=== PATIENT | male | born 1940 | race African-American/Black ===

== ENCOUNTER 2017-10-31 09:58 | Inpatient (IN) | payer OTHER ==
[~2017-10-31] VITALS: Ht 175.3 cm; Wt 64.5 kg
--- NOTE | ~2017-10-31 | 2DMMODE ---
[facility] [address] [place] [address] 2 D/M-MODE ECHOCARDIOGRAM Name: CHASE DELGADO Room #: 243-P ADM IN M.R.#: [id number] Admission: 10/31/17 Attend Phys: Tim Guadalupe MD Discharge: Date of : 40 Date of Service: 11/05/17 [facility] Report #: [id number] THIS REPORT FOR: //name// APPROVED REPORT Study performed: 11/05/2017 07:54:01 EXAM: Comprehensive 2D, Doppler, and color-flow Echocardiogram Patient Location: ICU Room #: 243 Status: routine BSA: 1.76 HR: 77 bpm BP: 134/70 mmHg Other Information Study Quality: Technically Difficult Technically limited study due to inability to position patient. Indications Congestive Heart Failure Hypertension/HDD 2D Dimensions RVDd: 28.97 mm LVEF(%): 57.26 (>50%) IVSd: 13.05 (7-11mm) LVOT Diam: 20.92 (18-24mm) LVDd: 31.21 mm PWd: 12.65 (7-11mm) Ascending Ao: 33.58 (22-36mm) LVDs: 22.14 (25-40mm) Aortic Root: 36.17 mm IVC: 6.00 mm Pedro's LVEF: 57.26 % Volumes Left Atrial Volume (Systole) Single Plane 4CH: 24.26 mL Single Plane 2CH: 20.00 mL LA ESV Index: 17.00 mL/m2 Aortic Valve AoV Peak Rad.: 1.07 m/s AO Peak Gr.: 4.62 mmHg LVOT Max P.99 mmHg LVOT Max V: 0.71 m/s IVAN Vmax: 2.25 cm2 Mitral Valve [facility] [address] [address] 2 D/M-MODE ECHOCARDIOGRAM Name: CHASE DELGADO Room #: [address] [place] [address] IN ..#: [id number] Admission: 10/31/17 Attend Phys: Tim Guadalupe MD Discharge: Date of : 40 Date of Service: 11/05/17 1200 Report #: [id number] E/A Ratio: 0.8 MV Decel. Time: 242.63 ms MV E Max Rad.: 0.74 m/s MV A Rad.: 0.90 m/s MV PHT: 70.36 ms IVRT: 96.89 ms Pulmonary Valve PV Peak Rad.: 1.21 m/s PV Peak Gr.: 5.88 mmHg Tricuspid Valve TR Peak Rad.: 3.16 m/s RAP Estimate: 5.00 mmHg TR Peak Gr.: 39.82 mmHg PA Pressure: 45.00 mmHg Left Ventricle The left ventricle is normal size. There is normal LV segmental wall motion. Mild concentric left ventricular hypertrophy. The left ventricular systolic function is normal. The left ventricular ejection fraction is within the normal range. LVEF is 55-60%. Mild diastolic dysfunction is present (impaired relaxation pattern). Right Ventricle The right ventricle is normal size. The right ventricular systolic function is normal. Atria The left atrium size is normal. The right atrium size is normal. Aortic Valve Mild aortic valve calcification No aortic regurgitation is present. There is no aortic valvular stenosis. Mitral Valve Mild mitral annular calcification. Mild mitral regurgitation. No evidence of mitral valve stenosis. Tricuspid Valve The tricuspid valve is normal in structure. Trace to mild tricuspid regurgitation. PAP is estimated at 45 mmHg. Pulmonic Valve Pulmonic valve is not well visualized. Mild pulmonic regurgitation. [facility] [address] [place] [address] 2 D/M-MODE ECHOCARDIOGRAM Name: CHASE DELGADO Room #: [facility] IN ..#: [id number] Admission: 10/31/17 Attend Phys: Tim Guadalupe MD Discharge: Date of : 40 Date of Service: 11/05/17 1200 Report #: [id number] Great Vessels The aortic root is normal in size. IVC is normal in size and collapses >50% with inspiration. Pericardium There is no pericardial effusion. <Conclusion> The left ventricular systolic function is normal. There is normal LV segmental wall motion. Mild concentric left ventricular hypertrophy. LVEF 55-60%. Mild diastolic dysfunction Mild aortic valve calcification No aortic regurgitation or stenosis Mild mitral annular calcification. Mild mitral regurgitation. Trace to mild tricuspid regurgitation. Pulmonary artery pressure estimated at 45 mmHg. There is no pericardial effusion. <ELECTRONICALLY SIGNED> By: Sav Rowan MD, FACC 11/05/171199 1200 99 Sav Rowan MD, FACC /INF
--- NOTE | ~2017-10-31 | EKG ---
[address] [address] ELECTROCARDIOGRAM REPORT Name: DANNYCHASE Room #: 453-P ADM IN M.R.#: [id number] Admission: 10/31/17 Attend Phys: Tim Guadalupe MD Discharge: Date of : 40 Report #: [id number] THIS REPORT FOR: //name// [facility] ED Test Date: 2017-10-31 Test Time: 10:48:22 Pat Name: CHASE DELGADO Department: Room: Gender: M Veneer Joiner: GRISEL : 1940 Requested By: Dennys Zhang Order Number: [id number] MD: Fox Mcnamara Measurements Intervals [place] Rate: 52 P: 77 RI: 179 QRS: 80 QRSD: 100 T: 45 QT: 446 QTc: 415 Interpretive Statements Sinus rhythm Probable left atrial enlargement Anteroseptal infarct, age indeterminate No previous ECG available for comparison Electronically Signed On 10-31-2017 13:57:29 CDT by Fox Mcnamara [email or web address] <ELECTRONICALLY SIGNED> By: Fox Mcnamara MD 10/31/17 1357 47 47 Fox Mcnamara MD /CARLOS
--- NOTE | ~2017-10-31 | EKG ---
[address] [address] ELECTROCARDIOGRAM REPORT Name: DELGADOCHASE SAINI Room #: 243-P ADM IN M.R.#: [id number] Admission: 10/31/17 Attend Phys: Tim Guadalupe MD Discharge: Date of : 40 Report #: [id number] THIS REPORT FOR: //name// [facility] Test Date: 2017-11-03 Test Time: 18:25:53 Pat Name: CHASE DELGADO Department: Room: 243 P Gender: M Manager Project: Geno MCGOVERN : 1940 Requested By: Suresh Lebron Order Number: [id number] MD: Sav Rowan Measurements Intervals [place] Rate: 109 P: 61 NM: 175 QRS: 80 QRSD: 92 T: -34 QT: 335 QTc: 452 Interpretive Statements Sinus tachycardia Ventricular premature complex Probable left atrial enlargement Borderline T abnormalities Compared to ECG 10/31/2017 10:48:22 Ventricular premature complex(es) now present Electronically Signed On 11-04-2017 8:00:55 CDT by Sav Rowan [email or web address] <ELECTRONICALLY SIGNED> By: Sav Rowan MD, [facility] 11/04/17 0800 1825 1825 Sav Rowan MD, [facility] /EPI
[2017-10-31 10:02] VITALS: BP 153/86
[2017-10-31 11:15] LABS: HEMATOCRIT 43.1 % (42.0-52.0); HEMOGLOBIN 14.9 gm/dL (14.0-18.0); MCH 31.4 pg (26.0-34.0); MCHC 34.5 g/dL (28.0-37.0); MCV 90.9 fL (80.0-100.0); PLATELET COUNT 200 thou/uL (150-400); RBC 4.74 mil/uL (4.50-6.00); RDW 17.6 % (10.5-14.5); WBC 6.7 thou/uL (4.0-11.0)
[2017-10-31 11:19] LABS: CALCIUM 9.2 mg/dL (8.5-10.1); CREATININE 1.5 mg/dL (0.7-1.3); POTASSIUM 4.6 mmol/L (3.5-5.1)
[2017-10-31 11:24] LABS: DIRECT BILIRUBIN 0.2 mg/dL (<0.1-0.3); TOTAL BILIRUBIN 0.9 mg/dL (<0.1-1.0); TOTAL PROTEIN 7.9 g/dL (6.4-8.2)
[2017-10-31 12:02] LABS: ABSOLUTE NEUTROPHILS 3.4 thou/uL (1.4-8.2); NUCLEATED RBCS 1 /100WBC; PLATELET ESTIMATE NORMAL
[2017-10-31 12:03] LABS: ANISOCYTOSIS SLIGHT; POIKILOCYTOSIS 1+
[2017-10-31 12:11] LABS: URINE BILIRUBIN NEGATIVE (Negative); URINE BLOOD TRACE (Negative); URINE CLARITY CLEAR; URINE COLOR YELLOW; URINE GLUCOSE-RANDOM* NEGATIVE (Negative); URINE KETONES NEGATIVE (Negative); URINE LEUKOCYTES NEGATIVE (Negative); URINE NITRITE NEGATIVE (Negative); URINE PROTEIN (DIPSTICK) 2+ (Negative); URINE UROBILINOGEN 0.2 E.U./dl (0.2-1.0)
[2017-10-31] MEDS ORDERED: LOPRESSOR50 PO (12:18)
[2017-10-31] MEDS ORDERED: ALLOPURINOL 10100 M1 PO (12:19)
[2017-10-31] MEDS ORDERED: LIPITOR 20 MG T20 M1 PO (12:19)
[2017-10-31] MEDS ORDERED: NORVASC10 MG PO (12:19)
[2017-10-31 12:28] VITALS: BP 119/75
[2017-10-31 12:55] LABS: CASTS None Seen /LPF (None Seen); CRYSTALS None Seen /LPF (None Seen); SQUAMOUS 0-3 Few /LPF (0-3); URINE WBC 0-5 Rare /HPF (0-5)
[2017-10-31 12:56] LABS: BACTERIA 1-9 Few /HPF (None Seen); URINE RBC 0-2 Rare /HPF (0-2)
[2017-10-31 13:03] VITALS: BP 119/75
[2017-10-31 13:52] VITALS: BP 135/66
[2017-10-31 16:00] VITALS: BP 143/63
[2017-10-31 19:42] VITALS: BP 138/70
[2017-11-01] VITALS (13 sets, daily range): BP systolic 134–169; BP diastolic 64–103
[2017-11-01 06:16] LABS: ABSOLUTE NEUTROPHILS 3.2 thou/uL (1.4-8.2); EOSINOPHILS 1.7 % (0.0-3.0); HEMATOCRIT 42.4 % (42.0-52.0); HEMOGLOBIN 14.3 gm/dL (14.0-18.0); LYMPHOCYTES 39.5 % (24.0-44.0); MCH 30.8 pg (26.0-34.0); MCHC 33.9 g/dL (28.0-37.0); MONOCYTES 11.8 % (1.0-8.0); PLATELET COUNT 190 thou/uL (150-400); RBC 4.65 mil/uL (4.50-6.00); RDW 17.9 % (10.5-14.5); WBC 6.9 thou/uL (4.0-11.0)
[2017-11-01 06:34] LABS: CALCIUM 9.1 mg/dL (8.5-10.1); CREATININE 1.2 mg/dL (0.7-1.3); MAGNESIUM 1.8 mg/dL (1.8-2.4)
[2017-11-01 08:33] LABS: PLATELET ESTIMATE NORMAL
[2017-11-01] MEDS ORDERED: HYDROCODONE-AP1 EAC6 PO (11:17)
[2017-11-01] MEDS ORDERED: NEURONTIN 300300 M1 PO (11:17)
[2017-11-01] MEDS ORDERED: ZOFRAN4 MG PO (11:17)
[2017-11-02 04:20] VITALS: BP 165/76
[2017-11-02 05:24] LABS: HEMOGLOBIN 13.1 gm/dL (14.0-18.0); MCH 30.5 pg (26.0-34.0); RDW 17.7 % (10.5-14.5)
[2017-11-02 05:26] LABS: HEMATOCRIT 39.8 % (42.0-52.0); MCHC 32.9 g/dL (28.0-37.0); MCV 92.5 fL (80.0-100.0); PLATELET COUNT 194 thou/uL (150-400); RBC 4.31 mil/uL (4.50-6.00); WBC 16.3 thou/uL (4.0-11.0)
[2017-11-02 05:31] LABS: CALCIUM 8.6 mg/dL (8.5-10.1); CREATININE 1.7 mg/dL (0.7-1.3); POTASSIUM 5.2 mmol/L (3.5-5.1)
[2017-11-02 08:17] LABS: ABSOLUTE NEUTROPHILS 13.4 thou/uL (1.4-8.2); ANISOCYTOSIS 1+
[2017-11-02 08:22] VITALS: BP 156/67
[2017-11-02 12:51] LABS: BE(vivo) -6.4 mmol/L (-2 to +3); HCO3 18.4 mmol/L (22.0-26.0); PCO2 34.6 mmHg (35.0-45.0); PO2 48.9 mmHg (80.0-100.0); pH 7.344 (7.360-7.450); sO2 82.8 % (92.0-98.0)
[2017-11-02 16:19] VITALS: BP 154/73
[2017-11-02 19:59] LABS: ABSOLUTE NEUTROPHILS 12.2 thou/uL (1.4-8.2); BASOPHILS 0.2 % (0.0-2.0); HEMATOCRIT 39.3 % (42.0-52.0); HEMOGLOBIN 13.2 gm/dL (14.0-18.0); LYMPHOCYTES 11.3 % (24.0-44.0); MCH 30.6 pg (26.0-34.0); MCHC 33.6 g/dL (28.0-37.0); MCV 91.3 fL (80.0-100.0); MONOCYTES 8.2 % (1.0-8.0); PLATELET COUNT 169 thou/uL (150-400); POLYS 80.3 % (36.0-66.0); RDW 17.8 % (10.5-14.5); WBC 15.2 thou/uL (4.0-11.0)
[2017-11-02 20:05] VITALS: BP 169/64
[2017-11-02 20:08] LABS: CALCIUM 8.6 mg/dL (8.5-10.1); CREATININE 1.6 mg/dL (0.7-1.3); POTASSIUM 4.2 mmol/L (3.5-5.1)
[2017-11-02 21:06] LABS: URINE BILIRUBIN NEGATIVE (Negative); URINE BLOOD 3+ (Negative); URINE CLARITY CLEAR; URINE COLOR YELLOW; URINE GLUCOSE-RANDOM* NEGATIVE (Negative); URINE KETONES NEGATIVE (Negative); URINE LEUKOCYTES-REFLEX NEGATIVE (Negative); URINE NITRITE-REFLEX NEGATIVE (Negative); URINE PROTEIN (DIPSTICK) 2+ (Negative); URINE UROBILINOGEN 0.2 E.U./dl (0.2-1.0)
[2017-11-02 21:15] LABS: CASTS None Seen /LPF (None Seen); CRYSTALS None Seen /LPF (None Seen); SQUAMOUS None Seen /LPF (0-3)
[2017-11-02 21:16] LABS: BACTERIA-REFLEX 1-9 Few /HPF (None Seen); URINE WBC-REFLEX 0-5 Rare /HPF (0-5)
[2017-11-02 22:31] VITALS: BP 145/70
[2017-11-03] VITALS (19 sets, daily range): BP systolic 136–172; BP diastolic 63–116
[2017-11-03 05:26] LABS: BE(vivo) -3.3 mmol/L (-2 to +3); HCO3 20.7 mmol/L (22.0-26.0); PCO2 34.1 mmHg (35.0-45.0); pH 7.401 (7.360-7.450); sO2 87.4 % (92.0-98.0)
[2017-11-03 05:28] LABS: PO2 52.3 mmHg (80.0-100.0)
[2017-11-03 05:55] LABS: ABSOLUTE NEUTROPHILS 8.1 thou/uL (1.4-8.2); BASOPHILS 0.6 % (0.0-2.0); EOSINOPHILS 0.2 % (0.0-3.0); HEMATOCRIT 37.6 % (42.0-52.0); HEMOGLOBIN 12.7 gm/dL (14.0-18.0); LYMPHOCYTES 19.5 % (24.0-44.0); MCH 30.8 pg (26.0-34.0); MCHC 33.7 g/dL (28.0-37.0); MCV 91.5 fL (80.0-100.0); MONOCYTES 9.2 % (1.0-8.0); PLATELET COUNT 168 thou/uL (150-400); POLYS 70.5 % (36.0-66.0); RDW 17.6 % (10.5-14.5); WBC 11.5 thou/uL (4.0-11.0)
[2017-11-03 06:16] LABS: ALBUMIN 3.6 g/dL (3.4-5.0); CALCIUM 8.4 mg/dL (8.5-10.1); CREATININE 1.4 mg/dL (0.7-1.3); POTASSIUM 4.1 mmol/L (3.5-5.1); TOTAL BILIRUBIN 1.1 mg/dL (<0.1-1.0); TOTAL PROTEIN 6.6 g/dL (6.4-8.2)
[2017-11-03 08:48] LABS: ANISOCYTOSIS 1+
[2017-11-03 12:28] LABS: BE(vivo) -2.8 mmol/L (-2 to +3); HCO3 19.8 mmol/L (22.0-26.0); PCO2 28.5 mmHg (35.0-45.0); pH 7.459 (7.360-7.450); sO2 87.9 % (92.0-98.0)
[2017-11-03 12:29] LABS: PO2 49.9 mmHg (80.0-100.0)
[2017-11-03 17:26] LABS: ABSOLUTE NEUTROPHILS 11.8 thou/uL (1.4-8.2); BASOPHILS 0.6 % (0.0-2.0); EOSINOPHILS 0.3 % (0.0-3.0); HEMATOCRIT 36.9 % (42.0-52.0); HEMOGLOBIN 12.5 gm/dL (14.0-18.0); LYMPHOCYTES 11.7 % (24.0-44.0); MCHC 33.9 g/dL (28.0-37.0); MCV 91.5 fL (80.0-100.0); MONOCYTES 8.3 % (1.0-8.0); PLATELET COUNT 152 thou/uL (150-400); POLYS 79.1 % (36.0-66.0); RBC 4.03 mil/uL (4.50-6.00); RDW 18.4 % (10.5-14.5); WBC 14.9 thou/uL (4.0-11.0)
[2017-11-03 17:44] LABS: ALBUMIN 3.5 g/dL (3.4-5.0); CALCIUM 8.4 mg/dL (8.5-10.1); CREATININE 1.5 mg/dL (0.7-1.3); POTASSIUM 3.7 mmol/L (3.5-5.1); TOTAL BILIRUBIN 1.3 mg/dL (<0.1-1.0); TOTAL PROTEIN 7.3 g/dL (6.4-8.2); TROPONIN-I 0.3 ng/mL (<0.06)
[2017-11-04] VITALS (23 sets, daily range): BP systolic 126–162; BP diastolic 60–115
[2017-11-04 02:46] LABS: ABSOLUTE NEUTROPHILS 8.1 thou/uL (1.4-8.2); BASOPHILS 0.9 % (0.0-2.0); EOSINOPHILS 0.5 % (0.0-3.0); HEMATOCRIT 36.6 % (42.0-52.0); HEMOGLOBIN 12.3 gm/dL (14.0-18.0); LYMPHOCYTES 15.7 % (24.0-44.0); MCH 30.4 pg (26.0-34.0); MCHC 33.7 g/dL (28.0-37.0); MCV 90.3 fL (80.0-100.0); PLATELET COUNT 157 thou/uL (150-400); POLYS 73.9 % (36.0-66.0); RBC 4.05 mil/uL (4.50-6.00); RDW 17.7 % (10.5-14.5)
[2017-11-04 02:54] LABS: CALCIUM 8.4 mg/dL (8.5-10.1); CREATININE 1.2 mg/dL (0.7-1.3); POTASSIUM 3.6 mmol/L (3.5-5.1)
[2017-11-04 04:52] LABS: ANISOCYTOSIS 1+; OVALOCYTES OCCASIONAL; POIKILOCYTOSIS SLIGHT; SCHISTOCYTES RARE; TARGET CELLS OCCASIONAL
[2017-11-05] VITALS (17 sets, daily range): BP systolic 130–173; BP diastolic 59–118
[2017-11-05 04:57] LABS: ABSOLUTE NEUTROPHILS 4.5 thou/uL (1.4-8.2); BASOPHILS 1.4 % (0.0-2.0); EOSINOPHILS 1.5 % (0.0-3.0); HEMATOCRIT 34.5 % (42.0-52.0); HEMOGLOBIN 11.6 gm/dL (14.0-18.0); LYMPHOCYTES 26.3 % (24.0-44.0); MCH 30.4 pg (26.0-34.0); MCHC 33.6 g/dL (28.0-37.0); MCV 90.6 fL (80.0-100.0); MONOCYTES 11.6 % (1.0-8.0); PLATELET COUNT 165 thou/uL (150-400); POLYS 59.2 % (36.0-66.0); RBC 3.81 mil/uL (4.50-6.00); RDW 17.3 % (10.5-14.5); WBC 7.6 thou/uL (4.0-11.0)
[2017-11-05 05:15] LABS: CALCIUM 8.4 mg/dL (8.5-10.1); CREATININE 1.1 mg/dL (0.7-1.3); POTASSIUM 3.5 mmol/L (3.5-5.1); TROPONIN-I 0.06 ng/mL (<0.06)
[2017-11-06 03:52] VITALS: BP 168/86
[2017-11-06 06:02] LABS: HEMATOCRIT 36.5 % (42.0-52.0); HEMOGLOBIN 12.5 gm/dL (14.0-18.0); MCH 30.7 pg (26.0-34.0); MCHC 34.2 g/dL (28.0-37.0); MCV 89.9 fL (80.0-100.0); PLATELET COUNT 212 thou/uL (150-400); RBC 4.06 mil/uL (4.50-6.00); RDW 16.9 % (10.5-14.5); WBC 7.9 thou/uL (4.0-11.0)
[2017-11-06 06:08] LABS: CALCIUM 8.7 mg/dL (8.5-10.1); CREATININE 1.1 mg/dL (0.7-1.3); POTASSIUM 3.4 mmol/L (3.5-5.1)
[2017-11-06 06:54] LABS: ABSOLUTE NEUTROPHILS 4.3 thou/uL (1.4-8.2); PLATELET ESTIMATE NORMAL
[2017-11-06 08:19] VITALS: BP 178/95
[2017-11-06 16:53] VITALS: BP 183/91
[2017-11-06 19:27] VITALS: BP 157/78
[2017-11-07 04:13] VITALS: BP 152/91
[2017-11-07 07:16] VITALS: BP 149/83
[2017-11-07 11:06] VITALS: BP 185/108
[2017-11-07 13:00] VITALS: BP 140/63
[2017-11-07 15:06] VITALS: BP 154/69
[2017-11-07 19:46] VITALS: BP 172/87
[2017-11-08 03:38] VITALS: BP 162/86
[2017-11-08 07:39] VITALS: BP 166/87
[2017-11-08 11:05] VITALS: BP 151/77
[2017-11-08] MEDS ORDERED: AUGMENTIN 875-1 EACH PO (13:40)
[2017-11-08 15:12] VITALS: BP 144/75
[2017-11-08 17:20] VITALS: BP 144/75
[2017-11-08 18:14] VITALS: BP 144/75
== END 2017-11-08 19:00 | disposition home or self-care (01) | DRG 350 ==
LOC: ER 09:58 → 4W 12:33 → EROBS 12:33 → 4W 13:04 → 3W 11-03 13:51 → ICU 11-03 16:44 → 2N 11-05 17:46
PROVIDERS: Emergency Medicine; Hospitalist; Internal Medicine Pulmonary Disease; Nurse Practitioner; Nurse Practitioner Acute Care
PROC: 0YU54JZ Supplement Right Inguinal Region with Synthetic Substitute, Percutaneous Endoscopic Approach (ICD-10-PCS; principal; 2017-11-01)
PROC: 8E0W4CZ Robotic Assisted Procedure of Trunk Region, Percutaneous Endoscopic Approach (ICD-10-PCS; principal; 2017-11-01)
PROC: 5A09357 Assistance with Respiratory Ventilation, Less than 24 Consecutive Hours, Continuous Positive Airway Pressure (ICD-10-PCS; 2017-11-03)
PROC: 5A09357 Assistance with Respiratory Ventilation, Less than 24 Consecutive Hours, Continuous Positive Airway Pressure (ICD-10-PCS; 2017-11-05)
DX: K40.30 Unilateral inguinal hernia, with obstruction, without gangrene, not specified as recurrent (principal); A41.9 Sepsis, unspecified organism; J69.0 Pneumonitis due to inhalation of food and vomit; J96.91 Respiratory failure, unspecified with hypoxia; N17.0 Acute kidney failure with tubular necrosis; E87.2 Acidosis; I10 Essential (primary) hypertension; M10.9 Gout, unspecified; G62.9 Polyneuropathy, unspecified; K57.90 Diverticulosis of intestine, part unspecified, without perforation or abscess without bleeding; R91.8 Other nonspecific abnormal finding of lung field; Y95 Nosocomial condition; I27.20 Pulmonary hypertension, unspecified; J44.9 Chronic obstructive pulmonary disease, unspecified; E78.5 Hyperlipidemia, unspecified; E86.0 Dehydration; Z87.891 Personal history of nicotine dependence; Z99.81 Dependence on supplemental oxygen; Z79.899 Other long term (current) drug therapy
CPT/HCPCS: 10040; 10045; 10081; 10203; 49000; 50010; 50101; 50249; 50386; 50455; 50555; 52265; 53310; 54022; 54118; 54169; 56524; 56525; 56526; 56641; 56719; 57006; 57092; 57121; 57131; 62110; 62900; 70005